=== PATIENT | female | born 1980 | race African-American/Black ===

== ENCOUNTER 2019-11-23 18:21 | Emergency (ER) | payer MEDICAID, SELFPAY ==
[2019-11-23 18:22] VITALS: BP 127/90; PULSE 83; RESP 16; TEMP 36.5; O2SAT 100; BMI 29.7
--- NOTE | 2019-11-23 18:24 | RAD_ITS ---
STUDY: X-RAY - LEFT ANKLE REASON FOR EXAM: Female, 39 years old. FALL, LEFT ANKLE PAIN TECHNIQUE: 3 view(s) of the ankle. COMPARISON: None. FINDINGS: Normal visualized distal tibia and fibula. Normal medial and lateral malleoli. Normal tibiotalar articulation and ankle mortise. Normal visualized talus and calcaneus. The visualized subtalar, talonavicular, calcaneocuboid and tarsal articulations are normal. The soft tissue structures are unremarkable. RAD/Ankle min 3 Views IMPRESSION: Normal x-ray examination of the ankle. Electronically Signed: Mandeep Marvin MD at 19:11 EDT , Service support ,
[2019-11-23] MEDS: Ibuprofen 400 MG Tablet 800 MG PO (19:08)
--- NOTE | 2019-11-23 19:15 | RAD_ITS ---
STUDY: X-RAY - LEFT FOOT CLINICAL: Female, 39 years old. FALL WITH TWISTING INJURY TECHNIQUE: 3 view(s) of the foot. COMPARISON: None. FINDINGS: Normal talus, calcaneus, and tarsal bones. Normal visualized subtalar, talonavicular, calcaneocuboid, tarsal and tarsometatarsal articulations. Normal metatarsi. Normal metatarsophalangeal joint of the great toe. Normal tibial and fibular sesamoid bones. Normal interphalangeal joint of the great toe. Normal phalanges of the great toe. Normal second through fifth metatarsophalangeal joints. Normal interphalangeal joints and phalanges of the lesser toes. The soft tissue structures are unremarkable. RAD/Foot min 3 Views IMPRESSION: Normal x-ray examination of the foot. Electronically Signed: Mandeep Marvin MD at 20:03 EDT , Service support ,
--- NOTE | 2019-11-23 19:47 | ED.DCSUM_ITS ---
- ER Visit Summary Date of Service: 11/23/19 Chief Complaint: Left foot and ankle pain History of Present Illness: The patient is a 39 F with no primary care physician. She reports that just prior to coming [facility] department she slipped on wet concrete at [facility] and had a forced inversion injury of her left ankle. She denies any other trauma. No blow to the head or loss of consciousness. She not on anticoagulants. No neck or back pain. Patient complains of a throbbing pain in her left foot that is 10 out of 10 with walking of 10 at rest. She denies any paresthesias. She denies any other complaints. Physical Examination: Vitals: Stable. Afebrile. Neck: No vertebral tenderness. Full ROM without difficulty. Cleared by NEXUS criteria. Back: No vertebral tenderness. General: A&O x 3. NAD. Cardiovascular exam: Regular rate and rhythm, no murmur, rub or gallop. Respiratory exam: Chest nontender. No crepitus. Clear to auscultation bilaterally. No wheezes or stridor. Abdominal exam: Soft, nontender, nondistended, normal bowel sounds. No pain in RUQ or LUQ specifically. No peritoneal signs. Extremity: Mild tenderness palpation over her lateral malleolus. No pain over the base of the fifth metatarsal or proximal fibula. She does have moderate tenderness palpation over her midfoot. She is neurovascular intact distal to this. Test Results: Clinical Impression(s) from Imaging Studies Ankle X-Ray 11/23/19 18:24 IMPRESSION: Normal x-ray examination of the ankle. Electronically Signed: Mandeep Marvin MD at 19:11 EDT , Service support , Foot X-Ray 11/23/19 19:15 IMPRESSION: Normal x-ray examination of the foot. Electronically Signed: Mandeep Marvin MD at 20:03 EDT , Service support , Emergency Department Course and Treatment: Patient was treated with ibuprofen. She refused crutches. Treatment Plan: Patient be discharged instructions to follow-up with Dr. Hart in 1 week if not improving. Return to the emergency department for any worsening symptoms. Disposition: To home in improved and stable condition. Impression: 1. Left foot sprain. This note was generated with [employer] dictation software. It may contain incorrect words, spelling, and punctuation that were not noted in review of the chart prior to signing ED Disposition - Plan for ED Patient: Disposition: Home or Assisted Living Instructions: ED Sprain Foot Prescriptions: Naproxen [Naprosyn] 500 mg PO BID #14 tab Prescription Printed Referrals: Trinh Villanueva DPM [STAFF PHYSICIAN] - 1 Week if not improving
== END 2019-11-23 20:01 | disposition home or self-care (01) ==
PROVIDERS: Emergency Provider Emergency Medicine
DX: S93.602A Unspecified sprain of left foot, initial encounter (principal); W01.0XXA Fall on same level from slipping, tripping and stumbling without subsequent striking against object, initial encounter; Y93.89 Activity, other specified; Y92.512 Supermarket, store or market as the place of occurrence of the external cause; Y99.8 Other external cause status
CPT/HCPCS: 73610; 73630; 99283